=== PATIENT | male | born 1965 | race Two or more races ===

== ENCOUNTER 2022-09-14 09:02 | Inpatient (IN) | payer OTHER ==
[~2022-09-14] VITALS: Ht 175.3 cm; Wt 104.3 kg
== END 2022-09-22 18:33 | disposition home or self-care (01) | DRG 292 ==
LOC: ER 09:02 → ICU-2 20:25 → MEDJ 09-16 13:44
PROVIDERS: ADMIT Internal Medicine; ATTEND Internal Medicine
PROC: B246ZZZ Ultrasonography of Right and Left Heart (ICD-10-PCS; principal; 2022-09-14)
PROC: 4A12X4Z Monitoring of Cardiac Electrical Activity, External Approach (ICD-10-PCS; 2022-09-17)
DX: I13.0 Hypertensive heart and chronic kidney disease with heart failure and stage 1 through stage 4 chronic kidney disease, or unspecified chronic kidney disease (principal); E87.29 Other acidosis; N17.8 Other acute kidney failure; N18.31 Chronic kidney disease, stage 3a; Z72.0 Tobacco use; I50.9 Heart failure, unspecified; E10.22 Type 1 diabetes mellitus with diabetic chronic kidney disease; R09.02 Hypoxemia; E78.49 Other hyperlipidemia; R60.0 Localized edema; Z20.822 Contact with and (suspected) exposure to COVID-19